=== PATIENT | male | born 1965 | race Caucasian/White ===

== ENCOUNTER 2022-11-14 17:13 | Inpatient (IN) | payer MEDICARE, MEDICAID, SELFPAY ==
[2022-11-14 17:15] VITALS: BP 163/119; PULSE 89; RESP 16; TEMP 36.7; O2SAT 96; BMI 34.7
--- NOTE | 2022-11-14 18:08 | EDS_ITS ---
HPI History of Present Illness Chief Complaint: Substance Abuse Narrative Narrative: 57-year-old male past medical history of hypertension, diabetes, presents for detox from fentanyl. He states that he usually snorts fentanyl and has been for the last few weeks to months. He presents wanting detox, last using yesterday. He states he will usually by 20-30 then use. He denies any nausea or vomiting, no abdominal pain but thinks he needs his blood sugar checked even though he ate just prior to arrival. He states he has never been through detox previously. [facility] Medical History (Updated 11/14/22 @ 21:02 by Mathieu Phoenix MD) Diabetes Graves' disease Hyperlipidemia Hypertension Home Medications buprenorphine 8 mg-naloxone 2 mg sublingual tablet 1 tab sublingual BID 11/14/22 [History Last Taken Unknown] gabapentin 800 mg tablet 800 mg PO 4X/DAY 11/14/22 [History Last Taken Unknown] metformin 1,000 mg tablet 1,000 mg PO DAILY 11/14/22 [History Last Taken Unknown] metformin 500 mg tablet,extended release 24 hr 500 mg PO DAILY 11/14/22 [History Last Taken Unknown] zolpidem 10 mg tablet 10 mg PO DAILY 11/14/22 [History Last Taken Unknown] Allergy/AdvReac Type Severity Reaction Status Date / Time No Known Allergies Allergy Verified 11/14/22 17:14 Surgical History (Updated 11/14/22 @ 18:47 by Patricia Butcher) History of knee surgery Social History Smoking Status: Current every day smoker tobacco type: cigarettes ROS ROS ED ROS Narrative Constitutional: No fever, no chills. HEENT: No sore throat. No neck pain. No loss of vision. No rhinorrhea. Cardiovascular: No chest pain. No palpitations. No pedal edema. Respiratory: No cough, no shortness of breath. Abdominal: No abdominal pain. No nausea. No vomiting. Genitourinary: No dysuria. No hematuria. Musculoskeletal: No myalgias. No arthralgias. Neurologic: No headaches. No dizziness. No lightheadedness. Skin: No rash. No change in color. Psychiatric: No depression. No anxiety. EXAM Physical Exam Narrative Exam Narrative: Afebrile. Vital signs noted. HEENT: Normocephalic. Atraumatic. PERRL, EOMI. Neck soft and supple. No point tenderness or step off. Cardiovascular: Regular rate and rhythm. No murmurs, rubs, or gallops appreciated. Respiratory: No tachypnea. Lungs clear to auscultation bilaterally. Gastrointestinal: Abdomen soft, nontender, with normoactive bowel sounds. No rebound or guarding. Neurological: Awake. Alert. Nonfocal, nonlateralizing. Skin: No rash. Normal color. No pallor. Musculoskeletal: No pedal edema. Full range of motion extremities. Const Vital Signs: 11/14/22 17:15 11/14/22 19:46 11/14/22 20:16 Temperature 98.0 F Temperature Source Temporal Pulse Rate 89 81 72 Respiratory Rate 16 18 18 Blood Pressure 163/119 H 192/111 H 186/108 H Blood Pressure Mean 133 138 134 Pulse Ox 96 96 100 Oxygen Delivery Method Room Air Room Air Room Air MDM MDM MDM Narrative Medical decision making narrative: Medical screening labs will be obtained. Patient will be discussed with the hospitalist for admission to detox from opiates. I reviewed his laboratory work he has slightly elevated white count of 12.5 which I think is nonspecific, hemoglobin normal at 15.8, normal platelet count of 313. Sodium slightly low at 135, BUN is normal at 14 with slightly elevated creatinine of 1.53, glucose elevated at 187 consistent with his diabetes but he has a normal anion gap of 7. He had elevated blood pressure in the 190s systolic. He had not taken his medications this morning so he was administered hydralazine 10 mg orally. Urine for drugs of abuse is positive for cocaine and methamphetamines, and he admitted to using meth with his fentanyl. Ethyl alcohol is negative. His [id number] glucose was elevated appropriately at 157, no hypoglycemia. Patient was discussed with Dr. Quintero for admission for detox. He was informed of his elevated blood pressure and treatment with hydralazine. Disposition is admit in stable condition. History & Record Review Discussion w/independent historian: Patient Additional record(s) reviewed:: Prior outpatient record Lab Data Attestation: I reviewed the patient's lab results. Labs: Laboratory Results - last 24 hr 11/14/22 11/14/22 11/14/22 18:25 18:25 18:25 WBC 12.5 H RBC 5.05 Hgb 15.8 Hct 47.8 MCV 94.7 H MCH 31.3 MCHC 33.1 RDW Std Deviation 45.1 H RDW Coeff of Nancy 13.0 Plt Count 313 MPV 9.4 Immature Gran % (Auto) 0.300 Neut % (Auto) 57.7 Lymph % (Auto) 31.7 [place] % (Auto) 6.1 Eos % (Auto) 3.4 Baso % (Auto) 0.8 Absolute Neuts (auto) 7.2 Absolute Lymphs (auto) 3.95 Nucleated RBC % 0 Sodium 135 L Potassium 3.8 Chloride 98 Carbon Dioxide 30.0 Anion Gap 7 BUN 14 Creatinine 1.53 H Estim Creat Clear Calc 51.54 Est GFR (MDRD) Af Amer 61 Est GFR (MDRD) Non-Af 50 L BUN/Creatinine Ratio 9.2 L Glucose 187 H Calcium 9.1 Total Bilirubin 0.20 AST 18 ALT 20 Alkaline Phosphatase 90 Total Protein 8.0 Albumin 3.6 Globulin 4.4 H Albumin/Globulin Ratio 0.8 L Urine Opiates Screen Urine Methadone Screen Ur Barbiturates Screen Ur Phencyclidine Scrn Ur Amphetamines Screen MDMA (Ecstasy) Screen U Benzodiazepines Scrn Urine Cocaine Screen U Cannabinoids Screen Ur Drug Screen Comment Ethyl Alcohol < 3.0 POC Glucose 11/14/22 11/14/22 18:40 19:45 WBC RBC Hgb Hct MCV MCH MCHC RDW Std Deviation RDW Coeff of Nancy Plt Count MPV Immature Gran % (Auto) Neut % (Auto) Lymph % (Auto) [place] % (Auto) Eos % (Auto) Baso % (Auto) Absolute Neuts (auto) Absolute Lymphs (auto) Nucleated RBC % Sodium Potassium Chloride Carbon Dioxide Anion Gap BUN Creatinine Estim Creat Clear Calc Est GFR (MDRD) Af Amer Est GFR (MDRD) Non-Af BUN/Creatinine Ratio Glucose Calcium Total Bilirubin AST ALT Alkaline Phosphatase Total Protein Albumin Globulin Albumin/Globulin Ratio Urine Opiates Screen NEGATIVE Urine Methadone Screen NEGATIVE Ur Barbiturates Screen NEGATIVE Ur Phencyclidine Scrn NEGATIVE Ur Amphetamines Screen POSITIVE H MDMA (Ecstasy) Screen POSITIVE H U Benzodiazepines Scrn NEGATIVE Urine Cocaine Screen POSITIVE H U Cannabinoids Screen NEGATIVE Ur Drug Screen Comment Ethyl Alcohol POC Glucose 157 H Discharge Plan Dx/Rx/DC Orders Clinical Impression: Desire for detoxification, Fentanyl use disorder, mild, abuse, Polysubstance abuse Disposition Disposition: Acute Care Hospital [facility]
[2022-11-14 18:35] LABS: Absolute Lymphocyte Count 3.95 X10^3/uL (0.83-4.51); Absolute Neutrophil Count 7.2 X10^3/uL (2.0-7.7); Basophil% 0.8 % (0-1); Eosinophil# 0.42 X10^3/uL; Eosinophils% 3.4 % (0-5); Hematocrit 47.8 % (40-54); Hemoglobin 15.8 g/dL (13.0-16.5); Lymphocyte # 3.95 X10^3/ul (0.83-4.51); Lymphocyte % 31.7 % (19-41); Mean Corp Hgb Conc 33.1 g/dL (32-36); Mean Corpuscular Hgb 31.3 pg (27.0-32.0); Mean Corpuscular Volume 94.7 fL (80-94); Mean Platelet Vol. 9.4 fl (6.2-12.0); Monocyte# 0.76 X10^3/uL; Monocyte% 6.1 % (0-10); NRBC Flagged by Analyzer 0 % (0-5); Neutrophil # 7.19 X10^3/uL (2.7-7.7); Neutrophil % 57.7 % (47-70); Platelet Count 313 K/mm3 (150-450); RBC Distribution Width SD 45.1 fl (35.1-43.9); Red Blood Count 5.05 M/mm3 (4.6-6.2); White Blood Count 12.5 K/mm3 (4.4-11.0)
[2022-11-14 18:54] LABS: ALB/GLOB Ratio 0.8 RATIO (0.9-2.4); AST(SGOT) 18 U/L (15-37); Alanine Aminotransfer ALT/SGPT 20 U/L (16-61); Albumin, Serum 3.6 g/dL (3.2-5.0); Alcohol, Blood (Medical)-Serum < 3.0 mg/dL; Alkaline Phosphatase 90 U/L (45-117); Anion Gap 7 (5-15); BUN 14 mg/dL (7-18); BUN/Creat Ratio 9.2 RATIO (10-20); Calcium,Total 9.1 mg/dL (8.5-10.1); Chloride 98 mmol/L (98-107); Creatinine, Serum 1.53 mg/dL (0.70-1.30); EST Glomerular Filtration Rate 50 mL/min (>60); Est Glom Filt Rate - Afr Amer 61 mL/min (>60); Estimated Creatinine Clearance 51.54 ml/min; Globulin 4.4 g/dL (2.2-4.2); Glucose 187 mg/dL (74-106); Potassium 3.8 mmol/L (3.5-5.1); Sodium Level 135 mmol/L (136-145)
[2022-11-14 19:46] VITALS: BP 192/111; PULSE 81; RESP 18; O2SAT 96
[2022-11-14 20:06] LABS: Bedside Glucose 157 mg/dL (74-106)
[2022-11-14 20:14] LABS: Amphetamine Urine VISTA POSITIVE (<1000 ng/mL); Barbiturate Urine VISTA NEGATIVE (< 200 ng/mL); Benzodiazepine Urine VISTA NEGATIVE (< 200 ng/mL); Cocaine Urine VISTA POSITIVE (< 300 ng/mL); Ecstacy Urine VISTA POSITIVE (< 500 ng/mL); Methadone Urine VISTA NEGATIVE (< 300 ng/mL); PCP Urine VISTA NEGATIVE (< 25 ng/mL); THC Urine VISTA NEGATIVE (< 50 ng/mL); Vista UDS pH Range 6
--- NOTE | 2022-11-14 20:14 | ED.RN ---
PER DR. PATEL VERBAL ORDER, PT IS ABLE TO EAT. SNACK PROVIDED TO PT AT 2013.
[2022-11-14 20:16] VITALS: BP 186/108; PULSE 72; RESP 18; O2SAT 100
[2022-11-14] MEDS: hydrALAZINE 10 MG Tablet PO (20:17)
--- NOTE | 2022-11-14 20:50 | HP.PCM_ITS ---
HPI - General General Date of Admission: 11/14/22 Date of Service: 11/14/22 Chief Complaint: Resting fentanyl withdrawal treatment HPI Narrative LEN ISRAEL, is a 57 M who presents to the emergency room with chief complaint of requesting assistance withdrawing from fentanyl. Patient has lost his spouse 2-1/2 months ago and states he is lost control during this timeframe using excessive narcotics. He was recently confronted by his son who appealed to his sensitivity and has since motivated this patient to want to go through rehab. Last use was yesterday. Patient denies any chest pain, shortness of breath, fevers or chills, nausea vomiting or diarrhea at this present time. He does have high levels of anxiety and emotional lability. He will be admitted for drug rehabilitation. [facility] Medical History (Updated 11/14/22 @ 20:[address] Cal Quintero MD) Diabetes Graves' disease Hyperlipidemia Hypertension Home Medications buprenorphine 8 mg-naloxone 2 mg sublingual tablet 1 tab sublingual BID 11/14/22 [History Last Taken Unknown] gabapentin 800 mg tablet 800 mg PO 4X/DAY 11/14/22 [History Last Taken Unknown] metformin 1,000 mg tablet 1,000 mg PO DAILY 11/14/22 [History Last Taken Unknown] metformin 500 mg tablet,extended release 24 hr 500 mg PO DAILY 11/14/22 [History Last Taken Unknown] zolpidem 10 mg tablet 10 mg PO DAILY 11/14/22 [History Last Taken Unknown] Allergy/AdvReac Type Severity Reaction Status Date / Time No Known Allergies Allergy Verified 11/14/22 17:14 Surgical History (Updated 11/14/22 @ 18:47 by Patricia Butcher) History of knee surgery Social History Smoking Status: Current every day smoker tobacco type: cigarettes ROS Constitutional Constitutional: Denies chills or fever(s) Eyes Eyes: Denies change in vision ENT HEENT: Denies abnormal hearing Cardiovascular Cardiovascular: Denies chest pain Respiratory/Chest Respiratory/Chest: Denies cough Gastrointestinal Gastrointestinal: Denies abdominal pain Genitourinary Genitourinary: Denies dysuria Musculoskeletal Musculoskeletal: Denies back pain Integumentary Integumentary: Denies dry skin Neurologic Neurologic: Denies abnormal speech Psychiatric Psychiatric: Reports anxiety Vital Signs Vital Signs Vital Signs: 11/14/22 17:15 11/14/22 19:46 11/14/22 20:16 Temperature 98.0 F Temperature Source Temporal Pulse Rate 89 81 72 Respiratory Rate 16 18 18 Blood Pressure 163/119 H 192/111 H 186/108 H Blood Pressure Mean 133 138 134 Pulse Ox 96 96 100 Oxygen Delivery Method Room Air Room Air Room Air Weight Weight: 228 lb Body Mass Index (BMI) 34.7 Physical Exam Const oriented x3 General Appearance: cooperative HEENT normocephalic and head/scalp atraumatic Eyes PERRL Neck no lymphadenopathy Lymph Lymphatic: no lymphadenopathy noted Resp normal respiratory effort, normal air movement and clear to auscultation bila terally Cardio regular rate, regular rhythm, S1 normal heart sound and S2 normal heart sound GI normal to inspection, nondistended, normoactive bowel sounds Skin General Skin Exam: no breakdown Neuro CN's II-XII intact bilaterally Psych Mood & Affect: anxious Results Lab / Micro Data Result Diagrams: 11/14/22 18:25 11/14/22 18:25 Labs: Laboratory Results - last 24 hr 11/14/22 18:25: WBC 12.5 H, RBC 5.05, Hgb 15.8, Hct 47.8, MCV 94.7 H, MCH 31.3, MCHC 33.1, RDW Std Deviation 45.1 H, RDW Coeff of Nancy 13.0, Plt Count 313, MPV 9.4, Immature Gran % (Auto) 0.300, Neut % (Auto) 57.7, Lymph % (Auto) 31.7, [place] % (Auto) 6.1, Eos % (Auto) 3.4, Baso % (Auto) 0.8, Absolute Neuts (auto) 7.2, Absolute Lymphs (auto) 3.95, Nucleated RBC % 0 11/14/22 18:25: Ethyl Alcohol < 3.0 11/14/22 18:25: Sodium 135 L, Potassium 3.8, Chloride 98, Carbon Dioxide 30.0, Anion Gap 7, BUN 14, Creatinine 1.53 H, Estim Creat Clear Calc 51.54, Est GFR (MDRD) Af Amer 61, Est GFR (MDRD) Non-Af 50 L, BUN/Creatinine Ratio 9.2 L, Glucose 187 H, Calcium 9.1, Total Bilirubin 0.20, AST 18, ALT 20, Alkaline Phosphatase 90, Total Protein 8.0, Albumin 3.6, Globulin 4.4 H, Albumin/Globulin Ratio 0.8 L 11/14/22 18:40: Urine Opiates Screen NEGATIVE, Urine Methadone Screen NEGATIVE, Ur Barbiturates Screen NEGATIVE, Ur Phencyclidine Scrn NEGATIVE, Ur Amphetamines Screen POSITIVE H, MDMA (Ecstasy) Screen POSITIVE H, U Benzodiazepines Scrn NEGATIVE, Urine Cocaine Screen POSITIVE H, U Cannabinoids Screen NEGATIVE, Ur Drug Screen Comment 11/14/22 19:45: POC Glucose 157 H Assessment & Plan Assessment/Plan (1) Narcotic abuse: (2) Hyperlipidemia: (3) Diabetes: PLAN: Plan 1 narcotic abuse?admit patient to general medical floor, start patient on kimi cotic withdrawal protocol, consult case management for discharge planning and assistance with long-term rehabilitation 2. Hyperlipidemia?continue statin 3. Diabetes?continue routine home medications 4. DVT prophylaxis?SCDs if patient becomes nonambulatory Charges/Coding Visit Charges OBSV E&M: 10879 Observ/hosp same date L2
[2022-11-14 21:20] VITALS: BP 158/98; PULSE 65; RESP 18; TEMP 36.7; O2SAT 95
[2022-11-14 21:43] VITALS: BMI 34.3
[2022-11-14 22:05] VITALS: BP 187/110; PULSE 80; RESP 18; TEMP 36.9; O2SAT 97
--- NOTE | 2022-11-14 22:11 | CM.ED ---
Social Work SW spoke with patient about Ramp program and provided support. Ramp coordinator notified. Petty Eddy [employer], POLITICAL SCIENCE CHAIR
[2022-11-14] MEDS: hydroCHLOROthiazide 25 MG Tablet PO (22:46)
[2022-11-14] MEDS: amLODIPine 10 MG Tablet PO (22:46)
[2022-11-14] MEDS: Atorvastatin Calcium 20 MG Tablet PO (22:46)
[2022-11-15 04:05] VITALS: BP 155/92; PULSE 79; RESP 18; TEMP 37.1; O2SAT 95
[2022-11-15] MEDS: hydrOXYzine PAM 25 MG Capsule 50 MG PO (07:42)
[2022-11-15] MEDS: metFORMIN HCl 1,000 MG Tablet 1000 MG PO (07:42)
[2022-11-15] MEDS: Dicyclomine 10 MG Capsule 20 MG PO (07:42)
[2022-11-15 08:16] VITALS: BP 174/100; PULSE 78; RESP 18; TEMP 37.1; O2SAT 97
[2022-11-15] MEDS: amLODIPine 10 MG Tablet PO (08:30)
[2022-11-15] MEDS: hydroCHLOROthiazide 25 MG Tablet PO (08:30)
[2022-11-15] MEDS: Acetaminophen 325 MG Tablet 650 MG PO (08:30)
[2022-11-15 10:06] VITALS: BP 159/98; PULSE 76; RESP 18; TEMP 37; O2SAT 94
[2022-11-15] MEDS: cloNIDine HCl 0.1 MG Tablet PO (10:17)
--- NOTE | 2022-11-15 11:42 | PN_ITS ---
Subjective Subjective Patient seen and examined. He had no active complaints and had an uneventful night. He denies any tremors, chills, fever or chills. Review of systems otherwise negative. He has remained hemodynamically stable. Objective Data Objective Data Vital Signs: Vital Signs Temp Pulse Resp BP Pulse Ox O2 Del Method 98.6 F 76 18 159/98 H 94 Room Air 11/15/22 10:06 11/15/22 10:06 11/15/22 10:06 11/15/22 10:06 11/15/22 10:06 11/15/22 10:06 Oxygen Delivery Method Room Air Weight: 225 lb 12.054 oz Body Mass Index (BMI) 34.3 Intake & Output: Intake and Output for Last 24 Hours 11/13/22 11/14/22 11/15/22 23:59 23:59 23:59 Intake Total 320 / 320 Balance 320 / 320 Lab / Micro Data Result Diagrams: 11/14/22 18:25 11/14/22 18:25 Labs: Laboratory Results - last 24 hr 11/14/22 18:25: WBC 12.5 H, RBC 5.05, Hgb 15.8, Hct 47.8, MCV 94.7 H, MCH 31.3, MCHC 33.1, RDW Std Deviation 45.1 H, RDW Coeff of Nancy 13.0, Plt Count 313, MPV 9.4, Immature Gran % (Auto) 0.300, Neut % (Auto) 57.7, Lymph % (Auto) 31.7, [place] % (Auto) 6.1, Eos % (Auto) 3.4, Baso % (Auto) 0.8, Absolute Neuts (auto) 7.2, Absolute Lymphs (auto) 3.95, Nucleated RBC % 0 11/14/22 18:25: Ethyl Alcohol < 3.0 11/14/22 18:25: Sodium 135 L, Potassium 3.8, Chloride 98, Carbon Dioxide 30.0, Anion Gap 7, BUN 14, Creatinine 1.53 H, Estim Creat Clear Calc 51.54, Est GFR (MDRD) Af Amer 61, Est GFR (MDRD) Non-Af 50 L, BUN/Creatinine Ratio 9.2 L, Glucose 187 H, Calcium 9.1, Total Bilirubin 0.20, AST 18, ALT 20, Alkaline Phosphatase 90, Total Protein 8.0, Albumin 3.6, Globulin 4.4 H, Albumin/Globulin Ratio 0.8 L 11/14/22 18:40: Urine Opiates Screen NEGATIVE, Urine Methadone Screen NEGATIVE, Ur Barbiturates Screen NEGATIVE, Ur Phencyclidine Scrn NEGATIVE, Ur Amphetamines Screen POSITIVE H, MDMA (Ecstasy) Screen POSITIVE H, U Benzodiazepines Scrn NEGATIVE, Urine Cocaine Screen POSITIVE H, U Cannabinoids Screen NEGATIVE, Ur Drug Screen Comment 11/14/22 19:45: POC Glucose 157 H Physical Exam Const alert, oriented x3 and no apparent distress General Appearance: cooperative HEENT normocephalic, head/scalp atraumatic and moist oral mucous membranes Eyes PERRL and EOMs intact bilaterally Neck no lymphadenopathy and supple Lymph Lymphatic: no lymphadenopathy noted and no lymphedema noted Resp normal respiratory effort, normal air movement and clear to auscultation bilaterally Cardio regular rate, regular rhythm, S1 normal heart sound, S2 normal heart sound and no murmurs Palpation: normal PMI GI normal to inspection, nondistended, normoactive bowel sounds, soft to palpation, non-tender and non-distended Extremity normal capillary refill, no clubbing, cyanosis or edema and no calf tenderness Skin General Skin Exam: no breakdown Neuro CN's II-XII intact bilaterally, no focal motor deficits, no sensory deficits noted and deep tendon reflexes 2+ bilaterally Motor Exam: strength 5/5 throughout Psych thought process normal and cooperative Appearance: appropriate Assessment & Plan Assessment/Plan (1) Desire for detoxification: PLAN: Plan #Acute opioid withdrawal * On opioid withdrawal protocol with buprenorphine * on adjunctive meds for symptomatic relief. * #hypertension: on amlodipine and HCTZ. IV hydralazine prn #Diabetes mellitus: on metformin. ISS. Accuchecks ACHS. DVT prophylaxis: low risk, encourage to ambulate Charges/Coding Visit Charges Inpatient E&M: 52178 Subs Hosp L2
--- NOTE | 2022-11-15 11:51 | ADDICTION ---
This teletypewriter operator met with PT to conduct ASAM, MSE, AUDIT, DUDIT assessments and to plan for d/c. PT A+Ox4 and participated actively. All assessments completed and placed in PT's chart. PT plans to f/u with [facility] for follow-up outpatient treatment services on Monday. Pt did not identify need for transportation.
[2022-11-15 12:04] VITALS: BP 157/102; PULSE 69; RESP 18; TEMP 36.9; O2SAT 99
[2022-11-15 15:03] VITALS: BP 149/93; PULSE 87; RESP 18; TEMP 36.8; O2SAT 94
[2022-11-15] MEDS: Buprenorphine HCl 2 MG TAB.SUBL SL (17:31)
[2022-11-15 20:00] VITALS: BP 142/86; PULSE 80; RESP 14; TEMP 36.7; O2SAT 97
[2022-11-15] MEDS: Atorvastatin Calcium 20 MG Tablet PO (21:08)
[2022-11-16] MEDS: Buprenorphine HCl 2 MG TAB.SUBL SL ×3 (01:36→17:19)
[2022-11-16] MEDS: Acetaminophen 325 MG Tablet 650 MG PO ×2 (01:40→14:40)
[2022-11-16 01:46] VITALS: BP 159/90; PULSE 95; RESP 14; TEMP 36.9; O2SAT 96
[2022-11-16 07:30] VITALS: BP 150/97; PULSE 93; RESP 18; TEMP 37.2; O2SAT 95
[2022-11-16] MEDS: amLODIPine 10 MG Tablet PO (07:36)
[2022-11-16] MEDS: metFORMIN HCl 1,000 MG Tablet 1000 MG PO (07:36)
[2022-11-16] MEDS: hydroCHLOROthiazide 25 MG Tablet PO (07:36)
--- NOTE | 2022-11-16 14:28 | PN_ITS ---
Subjective Subjective Patient seen and examined. He had no complaints and felt well. Review of systems otherwise negative. Labs and vitals reviewed. Home medication reviewed and reconciled. Objective Data Objective Data Vital Signs: Vital Signs Temp Pulse Resp BP Pulse Ox O2 Del Method 99 F 93 18 150/97 H 95 Room Air 11/16/22 07:30 11/16/22 07:30 11/16/22 07:30 11/16/22 07:30 11/16/22 07:30 11/16/22 07:44 Oxygen Delivery Method Room Air Weight: 225 lb 12.054 oz Body Mass Index (BMI) 34.3 Intake & Output: Intake and Output for Last 24 Hours 11/14/22 11/15/22 11/16/22 23:59 23:59 23:59 Intake Total 320 / 320 400 / 400 Balance 320 / 320 400 / 400 Lab / Micro Data Result Diagrams: 11/14/22 18:25 11/14/22 18:25 Physical Exam Const alert, oriented x3 and no apparent distress General Appearance: cooperative HEENT normocephalic, head/scalp atraumatic and moist oral mucous membranes Eyes PERRL and EOMs intact bilaterally Neck no lymphadenopathy, supple and no JVD Lymph Lymphatic: no lymphadenopathy noted and no lymphedema noted Resp normal respiratory effort, normal air movement and clear to auscultation bilaterally Cardio regular rate, regular rhythm, S1 normal heart sound, S2 normal heart sound and no murmurs Palpation: normal PMI GI normal to inspection, nondistended, normoactive bowel sounds, soft to palpation, non-tender and non-distended Extremity normal capillary refill, no clubbing, cyanosis or edema and no calf tenderness Skin General Skin Exam: no breakdown Neuro CN's II-XII intact bilaterally, no focal motor deficits, no sensory deficits noted and deep tendon reflexes 2+ bilaterally Motor Exam: strength 5/5 throughout Psych thought process normal and cooperative Appearance: appropriate Assessment & Plan Assessment/Plan (1) Desire for detoxification: PLAN: Plan #Acute opioid withdrawal * On opioid withdrawal protocol with buprenorphine * on adjunctive meds for symptomatic relief. * #hypertension: on amlodipine and HCTZ. IV hydralazine prn #Diabetes mellitus: on metformin. ISS. Accuchecks ACHS. DVT prophylaxis: low risk, encourage to ambulate Disposition; for dc home tomorrow. Charges/Coding Visit Charges Inpatient E&M: 34748 Subs Hosp L2
[2022-11-16 14:30] VITALS: BP 154/98; PULSE 86; RESP 18; TEMP 37; O2SAT 95
[2022-11-16] MEDS: Methocarbamol 750 MG Tablet 1500 MG PO (14:40)
[2022-11-16] MEDS: hydrOXYzine PAM 25 MG Capsule 50 MG PO (14:40)
[2022-11-16] MEDS: Atorvastatin Calcium 20 MG Tablet PO (19:43)
[2022-11-16] MEDS: Gabapentin 300 MG Capsule PO (19:43)
[2022-11-16] MEDS: cloNIDine HCl 0.1 MG Tablet PO (19:43)
--- NOTE | 2022-11-16 19:45 | NURSING ---
hs med given at this time per pt request
[2022-11-16 20:00] VITALS: BP 143/103; PULSE 92; RESP 14; TEMP 36.9
[2022-11-17] VITALS (7 sets, daily range): BP systolic 104–157; BP diastolic 86–103; PULSE 80–96; RESP 14–20; TEMP 36.4–37.1; O2SAT 95–97
[2022-11-17] MEDS: Buprenorphine HCl 2 MG TAB.SUBL SL ×3 (01:47→17:29)
[2022-11-17] MEDS: cloNIDine HCl 0.1 MG Tablet PO ×2 (03:26→17:29)
[2022-11-17] MEDS: metFORMIN HCl 1,000 MG Tablet 1000 MG PO (09:21)
[2022-11-17] MEDS: hydroCHLOROthiazide 25 MG Tablet PO (09:22)
[2022-11-17] MEDS: amLODIPine 10 MG Tablet PO (09:22)
--- NOTE | 2022-11-17 11:01 | DCINST_ITS ---
Discharge Instructions Diet Discharge Diet: Low fat / Low cholesterol Activity Discharge Activity: Return to Normal Activity Weight Bearing Status: Weight bearing as tolerated Dressing / Incision Call your doctor if you observe: Fever of 101 or Higher, Shortness of breath, Dizziness, Swelling in the ankles, Chest pain and Increased palpitations (irregular heartbeat) Follow Up Care Test Results: Test results from this visit will be discussed in further detail at your follow- up appointment, if applicable. Discharge Plan Admission Admit Date/Time: 11/14/22 21:43 Primary Reason for Your Visit: acute opioid withdrawal Attending Provider: Cally Rucker Primary Care Provider: Care Physician,No Primary Consulting Providers: Cal Quintero Instructions Patient Instructions: ED Opioid Withdrawal Discharge Orders/Prescriptions Prescriptions: Continued gabapentin 800 mg tablet 800 mg PO 4X/DAY Label Comments: TAKE 1 TABLET 4 TIMES A DAY metformin 1,000 mg tablet 1,000 mg PO DAILY zolpidem 10 mg tablet 10 mg PO DAILY Label Comments: TAKE 1 TABLET BY MOUTH AT BEDTIME -G47.00- buprenorphine-naloxone 8-2 mg tablet, sublingual 1 tab SUBLINGUAL BID Label Comments: DISSOLVE 1 TABLET UNDER THE TONGUE 2 TIMES DAILY atorvastatin 20 mg tablet 20 mg PO QHS amlodipine 10 mg tablet 10 mg PO DAILY hydrochlorothiazide 25 mg tablet 25 mg PO DAILY Referrals / Follow Up: Care Physician,No Primary [Primary Care Provider] - [facility] Doctor,Out of [Non-Staff] - Within 1 Week Disposition Disposition (needs filled in before D/C Order can be placed): Home, Self Care
--- NOTE | 2022-11-17 13:47 | PCM.PROGNOTE ---
Subjective Subjective Patient seen and examined. He had no complaints today and had an uneventful night. Review of systems otherwise negative. Plan also discharged today but it appears he could not go back to where he came for bed so case management associate is working on placement. Discharge therefore canceled today. Objective Data Objective Data Vital Signs: Vital Signs Temp Pulse Resp BP Pulse Ox O2 Del Method 97.9 F 88 18 156/99 H 96 Room Air 11/17/22 09:45 11/17/22 09:45 11/17/22 09:45 11/17/22 09:45 11/17/22 09:45 11/17/22 09:45 Oxygen Delivery Method Room Air Weight: 225 lb 12.054 oz Body Mass Index (BMI) 34.3 Intake & Output: Intake and Output for Last 24 Hours 11/15/22 11/16/22 11/17/22 23:59 23:59 23:59 Intake Total 320 / 320 400 / 400 600 / 600 Balance 320 / 320 400 / 400 600 / 600 Lab / Micro Data Result Diagrams: 11/14/22 18:25 11/14/22 18:25 Physical Exam Const alert, oriented x3 and no apparent distress General Appearance: cooperative HEENT normocephalic, head/scalp atraumatic and moist oral mucous membranes Eyes PERRL and EOMs intact bilaterally Neck no lymphadenopathy, supple and no JVD Lymph Lymphatic: no lymphadenopathy noted and no lymphedema noted Resp normal respiratory effort, normal air movement and clear to auscultation bilaterally Cardio regular rate, regular rhythm, S1 normal heart sound, S2 normal heart sound and no murmurs Palpation: normal PMI GI normal to inspection, nondistended, normoactive bowel sounds, soft to palpation, non-tender and non-distended Extremity normal capillary refill, no clubbing, cyanosis or edema and no calf tenderness Skin General Skin Exam: no breakdown Neuro CN's II-XII intact bilaterally, no focal motor deficits, no sensory deficits noted and deep tendon reflexes 2+ bilaterally Motor Exam: strength 5/5 throughout Psych thought process normal and cooperative Appearance: appropriate Assessment & Plan Assessment/Plan (1) Desire for detoxification: PLAN: Plan #Acute opioid withdrawal On opioid withdrawal protocol with buprenorphine on adjunctive meds for symptomatic relief. #hypertension: on amlodipine and HCTZ. IV hydralazine prn #Diabetes mellitus: on metformin. ISS. Accuchecks ACHS. DVT prophylaxis: low risk, encourage to ambulate Disposition; for dc tomorrow. Charges/Coding Visit Charges Inpatient E&M: 10562 Subs Hosp L2
--- NOTE | 2022-11-17 14:38 | NURSING ---
when calling [facility] for a ride, it was discovered that pt is required to go 30 day inpatient rehab before he can possibly return to [facility] Americo from [facility] was notified and Americo is going to seek a place that has a bed open on this short notice-pt states he talked to someone from a treatment program inpt recently this afternoon when staff brought him a phone-Dr nichols has been notofied and she is agreeable to keep pt until tommorow with the hopes of getting a facility to accept him-pt updated-pt given the [facility] admission paper agreement to review-pt assisted back into hospital clothing and belongings locked back up
[2022-11-17] MEDS: Atorvastatin Calcium 20 MG Tablet PO (20:34)
[2022-11-18 05:15] VITALS: BP 158/98; PULSE 82; RESP 16; TEMP 36.9; O2SAT 98
[2022-11-18] MEDS: Buprenorphine HCl 2 MG TAB.SUBL SL (05:17)
[2022-11-18 08:35] VITALS: BP 146/99; PULSE 76; RESP 18; TEMP 36.8; O2SAT 92
[2022-11-18] MEDS: metFORMIN HCl 1,000 MG Tablet 1000 MG PO (08:41)
[2022-11-18] MEDS: amLODIPine 10 MG Tablet PO (08:41)
[2022-11-18] MEDS: hydroCHLOROthiazide 25 MG Tablet PO (08:41)
--- NOTE | 2022-11-18 10:00 | PCM.DC ---
Discharge Instructions Diet Discharge Diet: Low fat / Low cholesterol Activity Discharge Activity: Return to Normal Activity Weight Bearing Status: Weight bearing as tolerated Dressing / Incision Call your doctor if you observe: Fever of 101 or Higher, Shortness of breath, Dizziness, Swelling in the ankles, Chest pain and Increased palpitations (irregular heartbeat) Follow Up Care Test Results: Test results from this visit will be discussed in further detail at your follow-up appointment, if applicable. Discharge Plan Admission Admit Date/Time: 11/14/22 21:43 Primary Reason for Your Visit: acute opioid withdrawal Attending Provider: Cally Rucker Primary Care Provider: Care Physician,No Primary Consulting Providers: Cal Quintero Instructions Patient Instructions: ED Opioid Withdrawal Discharge Orders/Prescriptions Prescriptions: Continued gabapentin 800 mg tablet 800 mg PO 4X/DAY Label Comments: TAKE 1 TABLET 4 TIMES A DAY metformin 1,000 mg tablet 1,000 mg PO DAILY zolpidem 10 mg tablet 10 mg PO DAILY Label Comments: TAKE 1 TABLET BY MOUTH AT BEDTIME -G47.00- buprenorphine-naloxone 8-2 mg tablet, sublingual 1 tab SUBLINGUAL BID Label Comments: DISSOLVE 1 TABLET UNDER THE TONGUE 2 TIMES DAILY atorvastatin 20 mg tablet 20 mg PO QHS amlodipine 10 mg tablet 10 mg PO DAILY hydrochlorothiazide 25 mg tablet 25 mg PO DAILY Referrals / Follow Up: Care Physician,No Primary [Primary Care Provider] - [facility] Doctor,Out of [Non-Staff] - Within 1 Week Disposition Disposition (needs filled in before D/C Order can be placed): Home, Self Care
--- NOTE | 2022-11-18 14:51 | DS.PCM_ITS ---
Providers Date of Admission: 11/14/22 Date of Discharge: 11/18/22 Primary Care Physician: No Primary Care Phys Reason For Visit: NARCOTIC ABUSE Diagnosis Discharge Diagnosis (1) Desire for detoxification: Status: Acute Plan #Acute opioid withdrawal * On opioid withdrawal protocol with buprenorphine * on adjunctive meds for symptomatic relief. * #hypertension: on amlodipine and HCTZ. IV hydralazine prn #Diabetes mellitus: on metformin. ISS. Accuchecks ACHS. DVT prophylaxis: low risk, encourage to ambulate Disposition; for dc home tomorrow. Medications at Discharge Home Medications amlodipine 10 mg tablet 10 mg PO DAILY 11/14/22 atorvastatin 20 mg tablet 20 mg PO QHS 11/14/22 buprenorphine 8 mg-naloxone 2 mg sublingual tablet 1 tab sublingual BID 11/14/22 gabapentin 800 mg tablet 800 mg PO 4X/DAY 11/14/22 hydrochlorothiazide 25 mg tablet 25 mg PO DAILY 11/14/22 metformin 1,000 mg tablet 1,000 mg PO DAILY 11/14/22 zolpidem 10 mg tablet 10 mg PO DAILY 11/14/22 Hospital Course Operations None Procedures None Summary of Care Provided Minutes Spent on Discharge: 47 Hospital Course: Patient is a 57-year-old male with a past medical history as outlined who was admitted through the ED on 11/14/2022 for acute fentanyl withdrawal. Patient said he had lots of spells a few months prior and had lost control during that timeframe and started using narcotics excessively. Patient was motivated by his family to come in for detox. His last use was the day before admission. He admitted to anxiety and emotional lability. Urine tox was positive for cocaine and amphetamines was negative for opioids. He was admitted and managed for acute opioid withdrawal. He was placed on opioid withdrawal protocol with buprenorphine. He tolerated the detox process and did well. He was discharged on 11/18/2022. He is to follow-up with his primary care doctor and addiction medicine services within 1 to 2 weeks. Patient seen and examined prior to discharge. He had no active complaints and had an uneventful night. Review of systems otherwise negative. Labs and vitals reviewed. Home medication reviewed and reconciled. Physical Exam Const alert, oriented x3 and no apparent distress General Appearance: cooperative, comfortable and well kempt HEENT normocephalic, head/scalp atraumatic, hearing grossly normal bilaterally and moist oral mucous membranes Mouth: oral and palatal mucosa normal Eyes PERRL and EOMs intact bilaterally Neck no lymphadenopathy, supple and no JVD Lymph Lymphatic: no lymphadenopathy noted and no lymphedema noted Resp normal respiratory effort, normal air movement and clear to auscultation bilaterally Cardio regular rate, regular rhythm, S1 normal heart sound, S2 normal heart sound and no murmurs Palpation: normal PMI GI normal to inspection, nondistended, normoactive bowel sounds, soft to palpation, non-tender and non-distended Extremity normal to inspection, full ROM, normal capillary refill, no clubbing, cyanosis or edema and no calf tenderness Skin no rashes or lesions noted General Skin Exam: no breakdown Neuro oriented x3, CN's II-XII intact bilaterally, moves all extremities, no focal motor deficits, no sensory deficits noted and deep tendon reflexes 2+ bilaterally Sensorium / Orientation: awake and alert Motor Exam: strength 5/5 throughout Psych thought process normal and cooperative Appearance: appropriate Mood & Affect: anxious Weight / BMI Weight Weight: 225 lb 12.054 oz Body Mass Index (BMI) 34.3 ABG / Lab / Microbiology Data Result Diagrams: 11/14/22 18:25 11/14/22 18:25 D/C Instructions Discharge Diet: Low fat / Low cholesterol Discharge Activity: Return to Normal Activity Weight Bearing Status: Weight bearing as tolerated Call your doctor if you observe: Fever of 101 or Higher, Shortness of breath, Dizziness, Swelling in the ankles, Chest pain and Increased palpitations (irregular heartbeat) Meaningful Use Info Meaningful Use Diagnoses (Choose all that apply): None applicable Discharge Plan Admission Admit Date/Time: 11/14/22 21:43 Primary Reason for Your Visit: acute opioid withdrawal Attending Provider: Cally Rucker Primary Care Provider: Care Physician,No Primary Consulting Providers: Cal Quintero Instructions Patient Instructions: ED Opioid Withdrawal Discharge Orders/Prescriptions Prescriptions: Continued gabapentin 800 mg tablet 800 mg PO 4X/DAY Label Comments: TAKE 1 TABLET 4 TIMES A DAY metformin 1,000 mg tablet 1,000 mg PO DAILY zolpidem 10 mg tablet 10 mg PO DAILY Label Comments: TAKE 1 TABLET BY MOUTH AT BEDTIME -G47.00- buprenorphine-naloxone 8-2 mg tablet, sublingual 1 tab SUBLINGUAL BID Label Comments: DISSOLVE 1 TABLET UNDER THE TONGUE 2 TIMES DAILY atorvastatin 20 mg tablet 20 mg PO QHS amlodipine 10 mg tablet 10 mg PO DAILY hydrochlorothiazide 25 mg tablet 25 mg PO DAILY Referrals / Follow Up: Care Physician,No Primary [Primary Care Provider] - [facility] Doctor,Out of [Non-Staff] - Within 1 Week Disposition Disposition (needs filled in before D/C Order can be placed): Home, Self Care Charges/Coding Visit Charges Inpatient E&M: 26448 Disch Hosp >30min
== END 2022-11-18 10:43 | disposition home or self-care (01) | DRG 772 ==
LOC: ED 21:02 → MS3 21:09
PROVIDERS: Admitting Provider Family Medicine; Emergency Provider Emergency Medicine; Visit Provider Student in an Organized Health Care Education/Training Program
DX: F11.23 Opioid dependence with withdrawal (principal); E11.65 Type 2 diabetes mellitus with hyperglycemia; F14.10 Cocaine abuse, uncomplicated; I10 Essential (primary) hypertension; E78.5 Hyperlipidemia, unspecified; F41.9 Anxiety disorder, unspecified; F17.210 Nicotine dependence, cigarettes, uncomplicated; Z79.84 Long term (current) use of oral hypoglycemic drugs; Z79.899 Other long term (current) drug therapy
CPT/HCPCS: 80053; 80307; 82077; 82962; 85025; 99285